=== PATIENT | female | born 1970 | race African-American/Black ===

== ENCOUNTER 2017-02-06 18:02 | Emergency (ER) | payer OTHER ==
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
== END 2017-02-06 19:25 | disposition home or self-care (01) ==
LOC: CFTX 18:02 → CED 18:02 → CFTX 19:01
DX: S06.0X0A Concussion without loss of consciousness, initial encounter (principal); S01.01XA Laceration without foreign body of scalp, initial encounter; I10 Essential (primary) hypertension; Z88.5 Allergy status to narcotic agent; Z88.8 Allergy status to other drugs, medicaments and biological substances; Y09 Assault by unspecified means; Y92.009 Unspecified place in unspecified non-institutional (private) residence as the place of occurrence of the external cause
CPT/HCPCS: 12001; 70450; 99283

== ENCOUNTER → 2017-02-13 | Outpatient (CLI) | payer MEDICARE ==
--- NOTE | ~2017-02-13 | CR151 ---
[facility] A Service of [facility] RADIOLOGY TEXT RESULTS PATIENT: SNOW BALLESTEROS LOCATION: [facility] : 72 UNIT #: [id number] AGE: [address]: Thor Marshall MD SEX: F ORDER DR: [id number] [facility] [address] [place], [place] [address] [id number] O MR#: [id number] Acc #: [id number] NAME: SNOW BALLESTEROS : 1970 SEX: F STUDY DATE/TIME: 02/13/2017 23:37 UNIT: [facility] ROOM: STUDY DESCRIPTION: CR Hip Min 2 Views Rt Attending Physician: Thor Marshall M.D. Ordering Physician: Thor Marshall M.D. Primary Care Physician: Primary Care Physician No MEDICAL IMAGING REPORT This report is preliminary unless electronic signature is present EXAM Right hip and pelvis, 02/13/17 INDICATIONS Chronic hip pain for 1 week with weakness. Fall last week. Degenerative joint disease. FINDINGS AP pelvis was obtained in addition to a frog-leg right hip. No comparison. No fractures are seen. There is degenerative joint space narrowing in both hips with some mild periarticular spur formation. No evidence of osteonecrosis in the femoral heads. There is degenerative disease in the lower lumbar spine. IMPRESSION Bilateral hip osteoarthritis. No acute findings. Dictated by... Daniel Mehta Jr., M.D. THIS IS AN ELECTRONICALLY VERIFIED REPORT Daniel Mehta Jr., M.D. at 02/14/2017 5:05 PM MACARIO/kristian TD: 02/14/2017 13:02 JOB #: [id number] MEDICAL IMAGING REPORT Page 1 of 1 COPY
== END | disposition home or self-care (01) ==
LOC: CRAD 23:25
DX: M16.0 Bilateral primary osteoarthritis of hip (principal)
CPT/HCPCS: 73502